=== PATIENT | female | born 1985 | race Caucasian/White ===

== ENCOUNTER 2024-12-01 20:30 | Emergency (ER) | payer OTHER, SELFPAY ==
[2024-12-01 20:32] VITALS: BP 133/84
--- NOTE | 2024-12-01 23:22 | ED.GENMED ---
History of Present Illness
General
Chief Complaint: Skin Surface Trauma
Source: patient and spouse
Exam Limitations: none
Time Seen by Provider: 12/01/24 22:08
Nursing documentation reviewed up to this point in time: agreed with
History of Present Illness
History of Present Illness:
39-year-old female presenting to the emergency department concerns of a laceration to her left pointer finger that occurred from a broken glass while cleaning glasses at home. She claims that the glass was already fully cleaned. Denies any
numbness weakness or additional concerns
Past History
Past History
ED Past Medical History: None
ED Past Surgical History: None
Social History
Tobacco: Non-smoker
Alcohol: None
Drug: None
Living: with family
Review of Systems
Review of Systems
Allergies reviewed?: Yes
All Other Systems: ROS reviewed and negative except as documented in HPI and ROS
Phy Exam
Physical Exam
Physical Exam:
GENERAL: Alert , in no apparent distress
EYE: pupils equal and reactive
NECK: Supple, no significant adenopathy.
ENT: o/p clr, mmm.
CARDIAC: Regular rate and rhythm .
LUNGS: Clear breath sounds bilaterally, no acute respiratory distress, no wheezes/rales/rhonchi
ABDOMEN: Soft, without focal tenderness, no r/g, no cvat
NEUROLOGICAL: Alert and oriented, no focal neuro deficits
SKIN: 90 degree angled shaped laceration 2.5 cm in total length of the left index finger on the ulnar aspect proximal subcutaneous in depth, warm and dry, skin intact.
MUSCULOSKELETAL: No edema, well perfused.
PSYCH: Normal and appropriate interaction.
Course
Vital Signs
Initial and Last Documented VS:
Initial Vital Signs
Temp Pulse Resp BP Pulse Ox
98.1 F 81 17 133/84 98
12/01/24 20:32 12/01/24 20:32 12/01/24 20:32 12/01/24 20:32 12/01/24 20:32
Last Documented Vital Signs
Temp Pulse Resp BP Pulse Ox
98.1 F 72 16 117/54 99
12/01/24 20:32 12/01/24 23:27 12/01/24 23:27 12/01/24 23:27 12/01/24 23:27
Procedures
Laceration Closure
Left Proximal Ulnar Second Finger:
Status of Wound: clean
Size of Wound in cm: 2.5
Description of Wound Edges: sharp
Preparation: cleaned with saline
Anesthesia: 1% Lidocaine
Revision/Debridement: routine- no revision and irrigate-direct pressure
Wound exploration: explored to base- no FB and no tendon involvement
Type of Closure: single layer closure and interrupted sutures
Skin Closure Material: 4-0 nylon
Number of sutures: 6
MDM/Problems Addressed
MDM/Problems Addressed:
Laceration sustained to the left pointer finger from a clean glass. It was recommended to get an updated tetanus shot but patient refused. Relevant risk of tetanus was explained to the patient. She demonstrated understanding. Otherwise the
laceration was cleaned thoroughly and closed with 6 stitches. She was advised to keep the area clean covered and follow-up in 12 to 14 days for suture removal. Return precautions were given for any signs of infection.
*Pulse Oximetry
SaO2: 98
Oxygen Mode of Delivery: Room air
Patient hypoxic: no (99)
*Critical Care Note
Total Time (30-74mins, 75-104mins- exclusive of procedures): Not Applicable
ED Attending Note
-
Portions of this chart may have been created with voice recognition software.� Occasional wrong word or��sound alike� substitutions may have occurred due to the inherent limitations of voice recognition software.
Discharge Plan
Departure
Patient Disposition: Home (Routine Discharge)
Date of Disposition: 12/01/24
Time of Disposition: 23:22
Patient with high blood pressure during this ER visit?: No
Condition: Good
Covid-19: Not Applicable
Discharge Problem:
Laceration of finger
Instructions: Laceration Repair With Stitches (DC)
Prescriptions:
No Action
Vitamin Tablet
1 tab PO DAILY
ibuprofen 600 MG tablet
600 mg PO TIDPRN PRN (Reason: pain) Qty: 15 0RF
metaxalone [Skelaxin] 800 MG tablet
800 mg PO TIDPRN PRN (Reason: muscle spasm/tightness) Qty: 15 0RF
hydrocodone-acetaminophen [[place]] 1 EACH tablet
1 ea PO Q6HPRN PRN (Reason: severe pain) Qty: 8 0RF
Referrals:
NONE,* [Family Provider, Internal Medicine]
Activity Restrictions/Additional Instructions:
You came to the emergency department today with concerns of laceration to your finger. This was cleaned thoroughly and closed with 6 stitches. Please keep the area clean covered and follow-up in 12 to 14 days for suture removal. Return for any
worsening, new or concerning symptoms.
Interventions
Interventions:
*Risk Screen - Suicide Last Done: 12/01/24 20:32
*General Assessment Last Done: 12/01/24 20:32
*Neglect/Abuse Screening Last Done: 12/01/24 20:32
*ED COVID-19 Vaccine History Last Done: 12/01/24 20:32
*Nursing Disposition Last Done: 12/01/24 23:28
ED-Skin Assessment Last Done: 12/01/24 21:00
Discharge Date and Time
Discharge Date/Time: 12/01/24 23:29
Print Language: CITIZEN [place]
[2024-12-01 23:27] VITALS: BP 117/54
== END 2024-12-01 23:29 | disposition home or self-care (01) ==
LOC: EMR 20:30
PROVIDERS: EMERGENCY PHYSICIAN Student in an Organized Health Care Education/Training Program
DX: S61.211A Laceration without foreign body of left index finger without damage to nail, initial encounter (principal); W25.XXXA Contact with sharp glass, initial encounter; Y93.G1 Activity, food preparation and clean up
CPT/HCPCS: 12041; 99282